=== PATIENT | female | born 1950 | race Caucasian/White ===

== ENCOUNTER → 2020-09-21 | Outpatient (CLI) | payer MEDICARE ==
[~2020-09-21] MED LIST: ATORVASTATIN CA40 MG PO; DILTIAZEM 24HR240 M1 PO; ELIQUIS 5 MG TAB5 MG PO; FUROSEMIDE40 MG PO; IBUPROFEN600 MG PO; LASIX40 MG PO; LISINOPRIL40 MG PO; LOPRESSOR 25 MG25 MG PO; MECLIZINE HCL25 MG PO; MELOXICAM7.5 MG PO; METOPROLOL SUCC50 MG PO; MULTAQ 400 MG400 MG PO; NORCO 5-325 TA1 EACH PO; OMEPRAZOLE20 M1 PO; VITAMIN D350 MC3 PO
[2020-09-21 08:26] LABS: HEMOGLOBIN 13.9 gm/dl (12.3-15.3); RED BLOOD COUNT 5.01 M/UL (4.00-5.10); WHITE BLOOD COUNT 8.2 K/UL (4.5-11.0)
[2020-09-21 08:43] LABS: BUN/CREATININE RATIO 21 (0-10)
== END ==
LOC: OPSV2 07:35
PROVIDERS: Orthopaedic Surgery
DX: Z01.818 Encounter for other preprocedural examination (principal); M16.11 Unilateral primary osteoarthritis, right hip; I10 Essential (primary) hypertension; R94.31 Abnormal electrocardiogram [ECG] [EKG]
CPT/HCPCS: 36415; 80048; 81001; 85025; 87081; 87086; 93005

== ENCOUNTER 2020-09-27 07:05 | Inpatient (IN) | payer MEDICARE ==
[~2020-09-27] VITALS: Ht 160 cm; Wt 79.4 kg
[~2020-09-27 07:05] MED LIST changes: -ATORVASTATIN CA40 MG PO; -DILTIAZEM 24HR240 M1 PO; -ELIQUIS 5 MG TAB5 MG PO; -FUROSEMIDE40 MG PO; -LASIX40 MG PO; -LISINOPRIL40 MG PO; -LOPRESSOR 25 MG25 MG PO; -MECLIZINE HCL25 MG PO; -MELOXICAM7.5 MG PO; -METOPROLOL SUCC50 MG PO; -MULTAQ 400 MG400 MG PO; -OMEPRAZOLE20 M1 PO; -VITAMIN D350 MC3 PO
[2020-09-27] MEDS ORDERED: MELOXICAM7.5 MG PO (08:21)
[2020-09-27] MEDS ORDERED: LISINOPRIL40 MG PO (08:22)
[2020-09-27] MEDS ORDERED: ATORVASTATIN CA40 MG PO (08:22)
[2020-09-27] MEDS ORDERED: METOPROLOL SUCC50 MG PO (08:23)
[2020-09-27] MEDS ORDERED: DILTIAZEM 24HR240 M1 PO (08:23)
[2020-09-27] MEDS ORDERED: MECLIZINE HCL25 MG PO (08:24)
[2020-09-27] MEDS ORDERED: OMEPRAZOLE20 M1 PO (08:25)
[2020-09-27 09:01] LABS: HEMOGLOBIN 12.8 gm/dl (12.3-15.3); RED BLOOD COUNT 4.59 M/UL (4.00-5.10); WHITE BLOOD COUNT 12.5 K/UL (4.5-11.0)
[2020-09-27 09:25] LABS: BUN/CREATININE RATIO 26 (0-10)
[2020-09-27] MEDS ORDERED: VITAMIN D350 MC3 PO (11:47)
[2020-09-28 04:46] LABS: RED BLOOD COUNT 4.62 M/UL (4.00-5.10)
[2020-09-30] MEDS ORDERED: MULTAQ 400 MG400 MG PO (10:59)
[2020-09-30] MEDS ORDERED: ELIQUIS 5 MG TAB5 MG PO (10:59)
[2020-09-30] MEDS ORDERED: LOPRESSOR 25 MG25 MG PO (10:59)
[2020-09-30] MEDS ORDERED: FUROSEMIDE40 MG PO (10:59)
== END 2020-09-30 13:28 | disposition home or self-care (01) | DRG 308 ==
LOC: ER1 07:05 → MED SURG 4 10:51 → CDU 10:51 → MED SURG 4 09-28 17:30
PROVIDERS: Internal Medicine; Physician Assistant; ADMIT Internal Medicine
PROC: B24BZZ4 Ultrasonography of Heart with Aorta, Transesophageal (ICD-10-PCS; principal; 2020-09-28)
DX: I48.0 Paroxysmal atrial fibrillation (principal); I50.33 Acute on chronic diastolic (congestive) heart failure; N17.9 Acute kidney failure, unspecified; I48.92 Unspecified atrial flutter; Z20.822 Contact with and (suspected) exposure to COVID-19; I11.0 Hypertensive heart disease with heart failure; J44.9 Chronic obstructive pulmonary disease, unspecified; K21.9 Gastro-esophageal reflux disease without esophagitis; E78.5 Hyperlipidemia, unspecified; I49.5 Sick sinus syndrome; F17.210 Nicotine dependence, cigarettes, uncomplicated; Z79.01 Long term (current) use of anticoagulants; Z90.710 Acquired absence of both cervix and uterus; Z88.6 Allergy status to analgesic agent; Z82.49 Family history of ischemic heart disease and other diseases of the circulatory system
CPT/HCPCS: ECHO; 36415; 71045; 78452; 80048; 80053; 82550; 82553; 83874; 83880; 84439; 84443; 84484; 85025; 85610; 93005; 93017; 93270; 93306; 96374; 99285; A9502; J0696; J1650; J1940; J2785; U0002

== ENCOUNTER → 2020-10-03 | Outpatient (CLI) | payer MEDICARE ==
[~2020-10-03] MED LIST changes: +ATORVASTATIN CA40 MG PO; +DILTIAZEM 24HR240 M1 PO; +ELIQUIS 5 MG TAB5 MG PO; +FUROSEMIDE40 MG PO; +LASIX40 MG PO; +LISINOPRIL40 MG PO; +LOPRESSOR 25 MG25 MG PO; +MECLIZINE HCL25 MG PO; +MELOXICAM7.5 MG PO; +METOPROLOL SUCC50 MG PO; +MULTAQ 400 MG400 MG PO; +OMEPRAZOLE20 M1 PO; +VITAMIN D350 MC3 PO
== END ==
LOC: LAB 10:00
PROVIDERS: Orthopaedic Surgery
DX: Z01.812 Encounter for preprocedural laboratory examination (principal); M16.11 Unilateral primary osteoarthritis, right hip; I10 Essential (primary) hypertension
CPT/HCPCS: 80048; 86850; 86900; 86901

== ENCOUNTER 2020-10-04 11:22 | Day surgery (SDC) | payer MEDICARE ==
[~2020-10-04] VITALS: Ht 160 cm; Wt 79.4 kg
[~2020-10-04 11:22] MED LIST changes: -LASIX40 MG PO
[2020-10-04] MEDS ORDERED: LASIX40 MG PO (11:56)
[2020-10-05 06:49] LABS: HEMOGLOBIN 11.7 gm/dl (12.3-15.3); RED BLOOD COUNT 4.17 M/UL (4.00-5.10)
--- NOTE | 2020-10-05 14:29 | NUR ---
Attempted to call report to [facility] at approx. [phone]...they got my name and number and said they would call me back.
--- NOTE | 2020-10-05 14:37 | NUR ---
Gave report to Tori Pretty at [facility] at approx. [phone]. -A.C.
== END 2020-10-05 14:46 | disposition home health service (06) ==
LOC: OR 11:22 → EDSTATUS 16:15 → M/S 19:32 → OR 10-05 14:46
PROVIDERS: Orthopaedic Surgery
PROC: 0SR90JA Replacement of Right Hip Joint with Synthetic Substitute, Uncemented, Open Approach (ICD-10-PCS; principal; 2020-10-04 16:15)
PROC: 3E0T3BZ Introduction of Anesthetic Agent into Peripheral Nerves and Plexi, Percutaneous Approach (ICD-10-PCS; principal; 2020-10-04 16:15)
DX: M16.11 Unilateral primary osteoarthritis, right hip (principal); I10 Essential (primary) hypertension; E78.5 Hyperlipidemia, unspecified; F17.210 Nicotine dependence, cigarettes, uncomplicated; H81.09 Meniere's disease, unspecified ear; Z20.822 Contact with and (suspected) exposure to COVID-19; Z88.5 Allergy status to narcotic agent; Z79.1 Long term (current) use of non-steroidal anti-inflammatories (NSAID); Z79.01 Long term (current) use of anticoagulants; Z79.899 Other long term (current) drug therapy
CPT/HCPCS: 36415; 73502; 76000; 80048; 85025; 97161; 97165; C1776; J0690; J1100; J2704; J2795; J3370; J7030; J7050; J7120

== ENCOUNTER 2021-11-01 07:40 | Inpatient (IN) | payer MEDICARE ==
[~2021-11-01] VITALS: Ht 160 cm; Wt 81.6 kg
[~2021-11-01 07:40] MED LIST changes: +LASIX40 MG PO
[2021-11-01 08:21] LABS: RED BLOOD COUNT 4.42 M/UL (4.00-5.10); WHITE BLOOD COUNT 9.1 K/UL (4.5-11.0)
[2021-11-01 08:52] LABS: BUN/CREATININE RATIO 15 (0-10)
[2021-11-01] MEDS ORDERED: SOTALOL80 MG PO (10:52)
[2021-11-01] MEDS ORDERED: VITAMIN E180 M1 PO (10:52)
[2021-11-01] MEDS ORDERED: AMLODIPINE BESYL5 MG PO (10:52)
[2021-11-02 06:41] LABS: HEMOGLOBIN 10.9 gm/dl (12.3-15.3); RED BLOOD COUNT 4.02 M/UL (4.00-5.10)
[2021-11-02 06:45] LABS: WHITE BLOOD COUNT 4.8 K/UL (4.5-11.0)
[2021-11-03] MEDS ORDERED: VITAMIN C 500500 MG PO (08:45)
[2021-11-03] MEDS ORDERED: DECADRON6 MG PO (08:45)
== END 2021-11-03 14:06 | disposition home or self-care (01) | DRG 177 ==
LOC: ER1 07:40 → M/S 10:04 → CDU 10:04 → M/S 15:53
PROVIDERS: Emergency Medicine; Physician Assistant Medical; ADMIT Internal Medicine
PROC: 8E0ZXY6 Isolation (ICD-10-PCS; principal; 2021-11-01)
PROC: XW033E5 Introduction of Remdesivir Anti-infective into Peripheral Vein, Percutaneous Approach, New Technology Group 5 (ICD-10-PCS; 2021-11-01)
PROC: 3E0333Z Introduction of Anti-inflammatory into Peripheral Vein, Percutaneous Approach (ICD-10-PCS; 2021-11-01)
DX: U07.1 COVID-19 (principal); J12.82 Pneumonia due to coronavirus disease 2019; J96.01 Acute respiratory failure with hypoxia; I50.32 Chronic diastolic (congestive) heart failure; E78.5 Hyperlipidemia, unspecified; I11.0 Hypertensive heart disease with heart failure; F17.210 Nicotine dependence, cigarettes, uncomplicated; I48.0 Paroxysmal atrial fibrillation; Z79.01 Long term (current) use of anticoagulants; Z90.710 Acquired absence of both cervix and uterus; Z88.8 Allergy status to other drugs, medicaments and biological substances; Z82.49 Family history of ischemic heart disease and other diseases of the circulatory system; Z98.51 Tubal ligation status; Z90.49 Acquired absence of other specified parts of digestive tract
CPT/HCPCS: 0240U; 36415; 36600; 71045; 80048; 80053; 82550; 82553; 82803; 82962; 83605; 83735; 83880; 84484; 85025; 85027; 87040; 87070; 87205; 93005; 94640; 94760; 96361; 96374; 99285; J0248; J0696; J1100; J7030